=== PATIENT | male | born 1980 ===

== ENCOUNTER → 2018-09-19 19:37 | Outpatient (REF) | payer OTHER, SELFPAY ==
[2018-09-19 19:57] LABS: Add Manual Diff / Slide Review NO; Basophils Absolute Auto 100 /uL (0-100); Basophils Percent Auto 0.4 % (0-2); Eosinophils Absolute Auto 100 /uL (0-450); Hematocrit 53.1 % (41-53); Hemoglobin 17.8 g/dL (13.5-17.5); Lymphocytes Absolute Auto 2100 /uL (1100-4500); Lymphocytes Percent Auto 15.8 % (25-40); Mean Corpuscular HGB Conc 33.6 % (30-36); Mean Corpuscular Hemoglobin 30.5 PG (26-34); Monocytes Absolute Auto 1000 /uL (0-900); Monocytes Percent Auto 7.7 % (3-14); Neutrophils Absolute Auto 10200 /uL (1500-7000); Neutrophils Percent Auto 75.1 % (50-75); Platelet Count 288 X10^3/uL (150-400); Red Blood Cell Count 5.84 X10^6/uL (4.5-5.9); White Blood Cell Count 13.5 X10^3/uL (4.5-11.0)
[2018-09-19 20:05] LABS: Alanine Aminotransferase 47 IU/L (21-72); Albumin 4.6 g/dL (3.5-5.0); Albumin Globulin Ratio 1.4 (1.0-2.8); Alkaline Phosphatase 189 U/L (38-126); Amylase 56 U/L (30-110); Aspartate Aminotransferase 23 IU/L (17-59); BUN Creatinine Ratio 27.8 (6-22); Blood Urea Nitrogen 25 mg/dL (9-20); Calcium 10.8 mg/dL (8.4-10.2); Carbon Dioxide 17 mmol/L (22-32); Chloride 94 mmol/L (98-107); Cholesterol 316 mg/dL (140-199); Estimated Glomerular Filt Rate > 60.0 mL/min (>60); Globulin 3.4 g/dL (1.7-4.1); HDL Cholesterol 35 mg/dL (40-60); HEMOLYSIS < 15 (0-50); Potassium 4.3 mmol/L (3.4-5.1); Sodium 132 mmol/L (137-145)
[2018-09-19 20:29] LABS: Triglycerides 2336 mg/dL (35-150)
[2018-09-19 21:44] LABS: Glucose 609 mg/dL (70-100)
--- NOTE | 2018-09-19 22:28 | PC.NURSE ---
Dr Peterson attempted to call pt with critical test results [id number]. Dr Peterson left a message on pts pbone number on file to return call.
== END ==
LOC: LAB 19:37
PROVIDERS: Visit Provider Nurse Practitioner Acute Care
DX: R73.01 Impaired fasting glucose (principal)
CPT/HCPCS: 80053; 80061; 82150; 83036; 85025